=== PATIENT | male | born 1960 | race Two or more races ===

== ENCOUNTER 2017-05-07 09:54 | Inpatient (IN) | payer OTHER ==
[~2017-05-07] VITALS: Ht 175.3 cm; Wt 79.6 kg
[~2017-05-07 09:54] MED LIST: ALLEGRA ALLERG180 MG PO; ALLOPURINOL100 MG PO; ALPRAZOLAM0.5 MG PO; ANTI-GAS600 UNIT PO; ASPIR-LOW81 MG PO; BEANO PO; CELLCEPT500 MG PO; CLONAZEPAM0.5 MG PO; COLACE100 MG PO; COUMADIN5 MG PO; DILAUDID2 MG PO; DILAUDID4 MG PO; FEOSOL45 MG PO; FISH OIL500 MG PO; FOSAMAX70 MG PO; HECORIA PO; INSTAFLEX PO; KRILL OIL500 MG PO; LACTAID ULT9000 UNIT PO; LOVENOX80 MG/0.8 SC; LOW DOSE ASPIRI81 M1 PO; METAMUCIL0.52 GM PO; METOPROLOL TART25 MG PO; NEXIUM20 MG PO; PRAVASTATIN SOD40 MG PO; PREDNISONE1 MG PO; PROBIOTIC1 EAC1 PO; PROGRAF1 MG PO; PROSTATE HEALT1 EAC1 PO; RAYOS5 MG PO; RENAL CAPS SOFTG1 MG PO; ROBAXIN500 MG PO; SIMETHICONE125 M1 PO; SIMVASTATIN40 MG PO; SINGULAIR10 MG PO; SLOW-MAG,MAG DE64 MG PO; TYLENOL ARTHRI650 MG PO; VITAMIN B-122500 MCG SL; WARFARIN SODIUM1 MG PO; XANAX0.5 MG PO; ZANTAC150 MG PO; ZEGERID20 MG PO; ZOCOR40 MG PO; ZUPLENZ4 MG PO; ZYLOPRIM300 MG PO; ZYRTEC10 M3 PO
[2017-05-07 11:18] LABS: HEMATOCRIT 55.2 % (38.0-50.0); HEMOGLOBIN 18.2 G/DL (12.5-16.6); MCH 33.8 PG (29.0-34.0); MCV 102.6 FL (86-99); PLATELET COUNT 149 K/uL (156-360); RBC DIS.WIDTH-CV 14.3 % (11.8-14.6); RBC DIS.WIDTH-SD 54.1 % (39-53); RED BLOOD COUNT 5.38 M/uL (4.00-5.50)
[2017-05-07 11:27] LABS: CHLORIDE 108 mEq/L (99-109); POTASSIUM 5.9 mEq/L (3.7-5.4); SODIUM 138 mEq/L (136-147)
[2017-05-07 11:29] LABS: GLUCOSE 277 mg/dL (70-99)
[2017-05-07 11:33] LABS: CREATININE 2.7 mg/dL (0.6-1.3); GFR ESTIMATE (CALCULATED) 26 mL/min/ (58.99-99999)
[2017-05-07 11:34] LABS: UREA NITROGEN (BUN) 53 mg/dL (9-23)
[2017-05-07 14:29] LABS: ALBUMIN 3.9 g/dL (3.2-4.8)
[2017-05-07 14:32] LABS: TOTAL PROTEIN 7.5 g/dL (6.4-8.3)
[2017-05-07 14:34] LABS: TOTAL BILIRUBIN 0.3 mg/dL (0.0-1.0)
[2017-05-07 14:35] LABS: ALKALINE PHOSPHATASE 45 IU/L (3-129)
[2017-05-07 14:37] LABS: AST (GOT) 38 IU/L (2-34)
[2017-05-07 14:38] LABS: ALT (GPT) 50 IU/L (3-49); DIRECT BILIRUBIN 0.2 mg/dL (0.0-0.3)
[2017-05-07 14:39] LABS: LIPASE 3 U/L (1.0-51.0)
[2017-05-07] MEDS ORDERED: TYLENOL ARTHRI650 MG PO ×3 (18:20)
[2017-05-07] MEDS ORDERED: ZOFRAN4 MG PO (18:27)
[2017-05-07] MEDS ORDERED: CELLCEPT500 MG PO (18:27)
[2017-05-07] MEDS ORDERED: ALPRAZOLAM0.5 MG PO (18:27)
[2017-05-07] MEDS ORDERED: NEXIUM 24HR20 M2 PO (18:27)
[2017-05-07] MEDS ORDERED: ALLOPURINOL300 MG PO (18:27)
[2017-05-07] MEDS ORDERED: LACTOSE FAS9000 UNI2 PO (18:28)
[2017-05-07] MEDS ORDERED: PROSTATE HEALT1 EAC1 PO (18:28)
[2017-05-07] MEDS ORDERED: METOPROLOL TART25 MG PO (18:30)
[2017-05-07] MEDS ORDERED: VITAMIN B-125000 MCG SL (18:30)
[2017-05-07] MEDS ORDERED: PREDNISONE5 MG PO (18:30)
[2017-05-07] MEDS ORDERED: PROGRAF1 MG PO (18:30)
[2017-05-07 18:33] LABS: HEMOGLOBIN A1c (GLYCOHEMOGLOB) 8.2 % HGB (Below 5.7)
[2017-05-07] MEDS ORDERED: CLONAZEPAM0.5 MG PO (18:33)
[2017-05-07] MEDS ORDERED: INDERAL10 MG PO (18:33)
[2017-05-07] MEDS ORDERED: KETOCONAZOLE120 ML TP (18:34)
[2017-05-07] MEDS ORDERED: TURMERIC 500 M1 EACH PO (18:35)
[2017-05-07] MEDS ORDERED: CITRACAL-VIT D1 EACH PO (18:35)
[2017-05-07] MEDS ORDERED: LOPERAMIDE2 M1 PO (18:35)
[2017-05-07] MEDS ORDERED: GINKGO BILOBA120 MG PO (18:36)
[2017-05-07] MEDS ORDERED: CRESTOR20 MG PO (18:36)
[2017-05-07] MEDS ORDERED: FISH OIL 1,0001 EAC7 PO (18:36)
[2017-05-07] MEDS ORDERED: TRAZODONE HCL50 MG PO (18:37)
[2017-05-07] MEDS ORDERED: DEPAKOTE500 MG PO (18:37)
[2017-05-07] MEDS ORDERED: ADULT ASPIRIN R81 MG PO (18:37)
[2017-05-07] MEDS ORDERED: COUMADIN3 MG PO (18:37)
[2017-05-07] MEDS ORDERED: SINGULAIR10 MG PO (18:37)
[2017-05-07] MEDS ORDERED: ESGIC 50-325-41 EAC1 PO (18:38)
[2017-05-07] MEDS ORDERED: [UNRECOGNIZED DRUG - OTHER] PO (18:38)
[2017-05-07] MEDS ORDERED: GLIPIZIDE XL10 MG PO (18:38)
[2017-05-07] MEDS ORDERED: IRON325 M1 PO (18:39)
[2017-05-07] MEDS ORDERED: LUBRICANT 0.5-015 ML BOTH EYES (18:39)
[2017-05-07 21:40] LABS: STOOL OCCULT BLD 1ST SPECIMEN NEGATIVE
[2017-05-07 21:51] VITALS: BP 102/67
[2017-05-07 21:57] LABS: GFR ESTIMATE (CALCULATED) 35 mL/min/ (58.99-99999)
[2017-05-07 21:58] LABS: UREA NITROGEN (BUN) 48 mg/dL (9-23)
[2017-05-07 22:03] LABS: CREATININE 2.1 mg/dL (0.6-1.3); SODIUM 140 mEq/L (136-147)
[2017-05-07 22:04] LABS: CHLORIDE 113 mEq/L (99-109); POTASSIUM 4.9 mEq/L (3.7-5.4)
[2017-05-07 22:05] LABS: GLUCOSE 152 mg/dL (70-99)
[2017-05-07 22:21] LABS: C DIFF TOXIN NEGATIVE (NEGATIVE)
[2017-05-07 23:15] VITALS: BP 104/68
[2017-05-08 03:24] VITALS: BP 100/65
[2017-05-08 06:45] LABS: MCH 32.7 PG (29.0-34.0); MCHC 31.7 G/DL (30.0-36.0); PLATELET COUNT 106 K/uL (156-360); RBC DIS.WIDTH-CV 14.1 % (11.8-14.6); WHITE BLOOD COUNT 5.7 K/uL (4.1-10.2)
[2017-05-08 06:55] LABS: CHLORIDE 113 MEQ/L (99-109); GLUCOSE 169 mg/dL (70-99); POTASSIUM 4.8 MEQ/L (3.7-5.4); SODIUM 141 MEQ/L (136-147); UREA NITROGEN (BUN) 45 mg/dL (9-23)
[2017-05-08 06:57] LABS: RED BLOOD COUNT 3.98 M/uL (4.00-5.50)
[2017-05-08 07:02] LABS: CREATININE 1.6 MG/DL (0.6-1.3); GFR ESTIMATE (CALCULATED) 48 mL/min/ (58.99-99999)
[2017-05-08 07:25] VITALS: BP 92/53
[2017-05-08 08:58] LABS: INTER. NORMALIZED RATIO 1.4
[2017-05-08 11:05] VITALS: BP 100/60
[2017-05-08 12:20] LABS: APPEARANCE CLEAR ((CLEAR)); BILIRUBIN NEGATIVE; BLOOD NEGATIVE; COLOR YELLOW ((YELLOW)); GLUCOSE (STRIP) NEGATIVE; KETONES NEGATIVE; LEUKOCYTES NEGATIVE; NITRITE NEGATIVE; PROTEIN (STRIP) NEGATIVE; SPECIFIC GRAVITY 1.018 (1.000-1.030); UCUL ADDED? NO; UROBILINOGEN 0.2 MG/DL (0.2-1.0)
[2017-05-08 15:27] VITALS: BP 103/63
[2017-05-08 20:30] VITALS: BP 109/63
[2017-05-08 23:15] VITALS: BP 108/66
[2017-05-09 06:57] LABS: INTER. NORMALIZED RATIO 1.7
[2017-05-09 07:04] LABS: ALBUMIN 2.7 G/DL (3.2-4.8); CHLORIDE 113 MEQ/L (99-109); GFR ESTIMATE (CALCULATED) > 59 mL/min/ (58.99-99999); GLUCOSE 151 mg/dL (70-99); PHOSPHORUS 2.5 mg/dL (2.5-4.9); SODIUM 141 MEQ/L (136-147); UREA NITROGEN (BUN) 23 mg/dL (9-23)
[2017-05-09 07:06] LABS: CREATININE 1.1 MG/DL (0.6-1.3)
[2017-05-09 08:24] VITALS: BP 129/67
[2017-05-09] MEDS ORDERED: TACROLIMUS ANHYD1 MG PO (14:27)
[2017-05-09 15:40] VITALS: BP 133/69
== END 2017-05-09 16:36 | disposition home or self-care (01) | DRG 872 ==
LOC: EME 09:54 → EDOF 17:11 → 5EAST 17:11 → ENRESERV 17:14 → 5EAST 20:53
PROVIDERS: Internal Medicine; Student in an Organized Health Care Education/Training Program
DX: A41.9 Sepsis, unspecified organism (principal); N17.9 Acute kidney failure, unspecified; A08.4 Viral intestinal infection, unspecified; I12.9 Hypertensive chronic kidney disease with stage 1 through stage 4 chronic kidney disease, or unspecified chronic kidney disease; N18.3 Chronic kidney disease, stage 3 (moderate); E11.22 Type 2 diabetes mellitus with diabetic chronic kidney disease; E86.0 Dehydration; E78.5 Hyperlipidemia, unspecified; I95.9 Hypotension, unspecified; E87.2 Acidosis; E87.5 Hyperkalemia; F41.0 Panic disorder [episodic paroxysmal anxiety]; K21.9 Gastro-esophageal reflux disease without esophagitis; K57.90 Diverticulosis of intestine, part unspecified, without perforation or abscess without bleeding; J45.909 Unspecified asthma, uncomplicated; N25.81 Secondary hyperparathyroidism of renal origin; N40.0 Benign prostatic hyperplasia without lower urinary tract symptoms; J98.11 Atelectasis; M10.9 Gout, unspecified; T86.19 Other complication of kidney transplant; Y83.0 Surgical operation with transplant of whole organ as the cause of abnormal reaction of the patient, or of later complication, without mention of misadventure at the time of the procedure; G43.909 Migraine, unspecified, not intractable, without status migrainosus; Z96.643 Presence of artificial hip joint, bilateral; Z90.5 Acquired absence of kidney; Z79.01 Long term (current) use of anticoagulants; Z86.73 Personal history of transient ischemic attack (TIA), and cerebral infarction without residual deficits
CPT/HCPCS: 74176; 80048; 80048 91; 80069; 80076; 80197 90; 81003; 82272; 82948; 83036; 83605; 83630; 83690; 85027; 85610; 87040; 87177; 87493; 99281; 99285; J0744; J1644; J1815; J2405; J7030; J7040; J7050; J7507; J7512; J7517; S0028; S0030